=== PATIENT | female | born 1950 | race Hispanic/Latino ===

== ENCOUNTER 2017-10-31 12:04 | Emergency (ER) | payer OTHER ==
[2017-10-31] MEDS ORDERED: NACL 0.9% 1000 ML 1,000 ML IV ONE ×2 (12:39→15:22)
--- NOTE | 2017-10-31 12:42 | Emergency Department Report ---
ED Altered Mental Status HPI - General Chief Complaint: Altered Mental Status Stated Complaint: ETOH/UNRESPONSIVE Time Seen by Provider: 10/31/17 12:37 Source: EMS Mode of arrival: Stretcher Limitations: Altered Mental Status - History of Present Illness Initial Comments: 66-year-old female brought by EMS for drinking binge all nught; today she was poorly arousable family called 911 she does arrive verbal protecting airway normal pulse ox but confused strength is grossly nonfocal to upper extremity + gag neck was supple she was afebrile. She is here for evaluation of altered mental status after drinking binge. MD Complaint: altered mental status -: unknown - Related Data Home Medications Medication Instructions Recorded Confirmed Last Taken Amitriptyline [Elavil] 50 mg PO HS 10/31/17 10/31/17 10/29/17 Naproxen Sodium [Aleve] 220 mg PO Q6H PRN 10/31/17 10/31/17 Unknown Paroxetine HCl [PARoxetine] 40 mg PO QDAY 10/31/17 10/31/17 10/29/17 traZODone [Desyrel] 50 mg PO QHS 10/31/17 10/31/17 10/29/17 Allergies Allergy/AdvReac Type Severity Reaction Status Date / Time Penicillins Allergy Unknown Verified 10/31/17 12:45 ED Review of Systems ROS: Stated complaint: ETOH/UNRESPONSIVE Other details as noted in HPI Comment: Unobtainable due to pts medical conditions Constitutional: other (no trauma per EMS and family normally does not get up and walk she does get around the house in a chair) ED Past Medical Hx - Past Medical History Additional medical history: unknown - Surgical History Additional Surgical History: unknown - Social History Smoking Status: Unknown if ever smoked - Medications Home Medications: Home Medications Medication Instructions Recorded Confirmed Last Taken Type Amitriptyline [Elavil] 50 mg PO HS 10/31/17 10/31/17 10/29/17 History Naproxen Sodium [Aleve] 220 mg PO Q6H PRN 10/31/17 10/31/17 Unknown History Paroxetine HCl [PARoxetine] 40 mg PO QDAY 10/31/17 10/31/17 10/29/17 History traZODone [Desyrel] 50 mg PO QHS 10/31/17 10/31/17 10/29/17 History ED Physical Exam - General Limitations: Altered Mental Status General appearance: obtunded, other (arousable protecting airway positive gag but altered mental status and intoxication) - Head Head exam: Present: atraumatic, normocephalic - Eye Eye exam: Present: normal appearance, PERRL - Cardiovascular Cardiovascular Exam: Present: regular rate, normal rhythm. Absent: irregular rhythm, systolic murmur, diastolic murmur, rubs, gallop - GI/Abdominal GI/Abdominal exam: Present: soft. Absent: tenderness, guarding, rebound, mass, bruit, pulsatile mass - Extremities Exam Extremities exam: Absent: tenderness, joint swelling, calf tenderness - Back Exam Back exam: Present: normal inspection. Absent: CVA tenderness (R) - Neurological Exam Neurological exam: Present: CN II-XII intact, other (previous parietal lobe CVA) ED Course Vital Signs 10/31/17 10/31/17 10/31/17 12:42 14:08 15:47 Temperature 97.5 F L Pulse Rate 66 65 Respiratory 18 20 14 Rate Blood Pressure 93/45 106/48 [Right] O2 Sat by Pulse 95 95 100 Oximetry 10/31/17 16:42 Temperature Pulse Rate 78 Respiratory 18 Rate Blood Pressure 104/56 [Right] O2 Sat by Pulse 97 Oximetry - Reevaluation(s) Reevaluation #1: 10/31/17 17:[address] were ordered family did eventually present to the ED. He states the patient never gets out of bed but they had given her a bottle of alcohol for Ramya is a history of drinking problems she barely drank all bilateral they denied any trauma she was verbal or megaly with eyes open and some following of commands CT head shows old parietal infarct but nothing acute laboratory studies essentially showed alcohol intoxication she was observed in ED until she was improved she was somewhat combative with blood draw and CT she was therefore given some sedation because of danger to self and others have a labile blood pressure in the ED which was corrected with fluids and some bicarbonate EKG was normal sinus rhythm without acute ST-T changes - Lab Data Result diagrams: 10/31/17 Unknown 10/31/17 Unknown Lab Results 10/31/17 10/31/17 10/31/17 Range/Units 13:50 13:50 14:36 WBC (4.5-11.0) K/mm3 RBC (3.65-5.03) M/mm3 Hgb (10.1-14.3) gm/dl Hct (30.3-42.9) % MCV (79-97) fl MCH (28-32) pg MCHC (30-34) % RDW (13.2-15.2) % Plt Count (140-440) K/mm3 Lymph % (Auto) (13.4-35.0) % Bertie % (Auto) (0.0-7.3) % Eos % (Auto) (0.0-4.3) % Baso % (Auto) (0.0-1.8) % Lymph # (1.2-5.4) K/mm3 Bertie # (0.0-0.8) K/mm3 Eos # (0.0-0.4) K/mm3 Baso # (0.0-0.1) K/mm3 Seg Neutrophils % (40.0-70.0) % Seg Neutrophils # (1.8-7.7) K/mm3 Sodium (137-145) mmol/L Potassium (3.6-5.0) mmol/L Chloride (98-107) mmol/L Carbon Dioxide (22-30) mmol/L Anion Gap mmol/L BUN (7-17) mg/dL Creatinine (0.7-1.2) mg/dL Estimated GFR ml/min BUN/Creatinine Ratio % Glucose (65-100) mg/dL Lactic Acid 2.80 H* (0.7-2.0) mmol/L Calcium (8.4-10.2) mg/dL Magnesium (1.7-2.3) mg/dL Total Bilirubin (0.1-1.2) mg/dL AST (5-40) units/L ALT (7-56) units/L Alkaline Phosphatase (35-129) units/L Total Protein (6.3-8.2) g/dL Albumin (3.9-5) g/dL Albumin/Globulin Ratio % TSH (0.270-4.200) mlU/mL Urine Color Yellow (Yellow) Urine Turbidity Clear (Clear) Urine pH 5.0 (5.0-7.0) Ur Specific [place] 1.017 (1.003-1.030) Urine Protein <15 mg/dl (Negative) mg/dL Urine Glucose (UA) Neg (Negative) mg/dL Urine Ketones Neg (Negative) mg/dL Urine Blood Neg (Negative) Urine Nitrite Pos (Negative) Urine Bilirubin Neg (Negative) Urine Urobilinogen 4.0 (<2.0) mg/dL Ur Leukocyte Esterase Neg (Negative) Urine WBC (Auto) 3.0 (0.0-6.0) /HPF Urine RBC (Auto) 5.0 (0.0-6.0) /HPF Urine Bacteria (Auto) 1+ (Negative) /HPF Urine Mucus Few /HPF Salicylates (2.8-20.0) mg/dL Urine Opiates Screen Presumptive negative Urine Methadone Screen Presumptive negative Acetaminophen (10.0-30.0) ug/mL Ur Barbiturates Screen Presumptive negative Ur Phencyclidine Scrn Presumptive negative Ur Amphetamines Screen Presumptive positive U Benzodiazepines Scrn Presumptive negative Urine Cocaine Screen Presumptive negative U Marijuana (THC) Screen Presumptive negative Drugs of Abuse Note Disclamer Plasma/Serum Alcohol (0-0.07) gm% 10/31/17 10/31/17 10/31/17 Range/Units Unknown Unknown Unknown WBC 5.1 (4.5-11.0) K/mm3 RBC 4.25 (3.65-5.03) M/mm3 Hgb 14.0 (10.1-14.3) gm/dl Hct 41.5 (30.3-42.9) % MCV 98 H (79-97) fl MCH 33 H (28-32) pg MCHC 34 (30-34) % RDW 14.0 (13.2-15.2) % Plt Count 147 (140-440) K/mm3 Lymph % (Auto) 25.0 (13.4-35.0) % Bertie % (Auto) 2.8 (0.0-7.3) % Eos % (Auto) 1.7 (0.0-4.3) % Baso % (Auto) 0.6 (0.0-1.8) % Lymph # 1.3 (1.2-5.4) K/mm3 Bertie # 0.1 (0.0-0.8) K/mm3 Eos # 0.1 (0.0-0.4) K/mm3 Baso # 0.0 (0.0-0.1) K/mm3 Seg Neutrophils % 69.9 (40.0-70.0) % Seg Neutrophils # 3.5 (1.8-7.7) K/mm3 Sodium 143 (137-145) mmol/L Potassium 4.9 (3.6-5.0) mmol/L Chloride 105.3 (98-107) mmol/L Carbon Dioxide 23 (22-30) mmol/L Anion Gap 20 mmol/L BUN 8 (7-17) mg/dL Creatinine 0.7 (0.7-1.2) mg/dL Estimated GFR > 60 ml/min BUN/Creatinine Ratio 11 % Glucose 112 H (65-100) mg/dL Lactic Acid 2.50 H* (0.7-2.0) mmol/L Calcium 8.0 L (8.4-10.2) mg/dL Magnesium 2.00 (1.7-2.3) mg/dL Total Bilirubin 0.30 (0.1-1.2) mg/dL AST 17 (5-40) units/L ALT 8 (7-56) units/L Alkaline Phosphatase 68 (35-129) units/L Total Protein 6.2 L (6.3-8.2) g/dL Albumin 4.0 (3.9-5) g/dL Albumin/Globulin Ratio 1.8 % TSH (0.270-4.200) mlU/mL Urine Color (Yellow) Urine Turbidity (Clear) Urine pH (5.0-7.0) Ur Specific [place] (1.003-1.030) Urine Protein (Negative) mg/dL Urine Glucose (UA) (Negative) mg/dL Urine Ketones (Negative) mg/dL Urine Blood (Negative) Urine Nitrite (Negative) Urine Bilirubin (Negative) Urine Urobilinogen (<2.0) mg/dL Ur Leukocyte Esterase (Negative) Urine WBC (Auto) (0.0-6.0) /HPF Urine RBC (Auto) (0.0-6.0) /HPF Urine Bacteria (Auto) (Negative) /HPF Urine Mucus /HPF Salicylates (2.8-20.0) mg/dL Urine Opiates Screen Urine Methadone Screen Acetaminophen (10.0-30.0) ug/mL Ur Barbiturates Screen Ur Phencyclidine Scrn Ur Amphetamines Screen U Benzodiazepines Scrn Urine Cocaine Screen U Marijuana (THC) Screen Drugs of Abuse Note Plasma/Serum Alcohol (0-0.07) gm% 12/26/17 12/26/17 12/26/17 Range/Units Unknown Unknown Unknown WBC (4.5-11.0) K/mm3 RBC (3.65-5.03) M/mm3 Hgb (10.1-14.3) gm/dl Hct (30.3-42.9) % MCV (79-97) fl MCH (28-32) pg MCHC (30-34) % RDW (13.2-15.2) % Plt Count (140-440) K/mm3 Lymph % (Auto) (13.4-35.0) % Bertie % (Auto) (0.0-7.3) % Eos % (Auto) (0.0-4.3) % Baso % (Auto) (0.0-1.8) % Lymph # (1.2-5.4) K/mm3 Bertie # (0.0-0.8) K/mm3 Eos # (0.0-0.4) K/mm3 Baso # (0.0-0.1) K/mm3 Seg Neutrophils % (40.0-70.0) % Seg Neutrophils # (1.8-7.7) K/mm3 Sodium (137-145) mmol/L Potassium (3.6-5.0) mmol/L Chloride (98-107) mmol/L Carbon Dioxide (22-30) mmol/L Anion Gap mmol/L BUN (7-17) mg/dL Creatinine (0.7-1.2) mg/dL Estimated GFR ml/min BUN/Creatinine Ratio % Glucose (65-100) mg/dL Lactic Acid (0.7-2.0) mmol/L Calcium (8.4-10.2) mg/dL Magnesium (1.7-2.3) mg/dL Total Bilirubin (0.1-1.2) mg/dL AST (5-40) units/L ALT (7-56) units/L Alkaline Phosphatase (35-129) units/L Total Protein (6.3-8.2) g/dL Albumin (3.9-5) g/dL Albumin/Globulin Ratio % TSH 1.260 (0.270-4.200) mlU/mL Urine Color (Yellow) Urine Turbidity (Clear) Urine pH (5.0-7.0) Ur Specific [place] (1.003-1.030) Urine Protein (Negative) mg/dL Urine Glucose (UA) (Negative) mg/dL Urine Ketones (Negative) mg/dL Urine Blood (Negative) Urine Nitrite (Negative) Urine Bilirubin (Negative) Urine Urobilinogen (<2.0) mg/dL Ur Leukocyte Esterase (Negative) Urine WBC (Auto) (0.0-6.0) /HPF Urine RBC (Auto) (0.0-6.0) /HPF Urine Bacteria (Auto) (Negative) /HPF Urine Mucus /HPF Salicylates < 0.3 L (2.8-20.0) mg/dL Urine Opiates Screen Urine Methadone Screen Acetaminophen < 15.0 (10.0-30.0) ug/mL Ur Barbiturates Screen Ur Phencyclidine Scrn Ur Amphetamines Screen U Benzodiazepines Scrn Urine Cocaine Screen U Marijuana (THC) Screen Drugs of Abuse Note Plasma/Serum Alcohol (0-0.07) gm% // Range/Units Unknown WBC (4.5-11.0) K/mm3 RBC (3.65-5.03) M/mm3 Hgb (10.1-14.3) gm/dl Hct (30.3-42.9) % MCV (79-97) fl MCH (28-32) pg MCHC (30-34) % RDW (13.2-15.2) % Plt Count (140-440) K/mm3 Lymph % (Auto) (13.4-35.0) % Bertie % (Auto) (0.0-7.3) % Eos % (Auto) (0.0-4.3) % Baso % (Auto) (0.0-1.8) % Lymph # (1.2-5.4) K/mm3 Bertie # (0.0-0.8) K/mm3 Eos # (0.0-0.4) K/mm3 Baso # (0.0-0.1) K/mm3 Seg Neutrophils % (40.0-70.0) % Seg Neutrophils # (1.8-7.7) K/mm3 Sodium (137-145) mmol/L Potassium (3.6-5.0) mmol/L Chloride (98-107) mmol/L Carbon Dioxide (22-30) mmol/L Anion Gap mmol/L BUN (7-17) mg/dL Creatinine (0.7-1.2) mg/dL Estimated GFR ml/min BUN/Creatinine Ratio % Glucose (65-100) mg/dL Lactic Acid (0.7-2.0) mmol/L Calcium (8.4-10.2) mg/dL Magnesium (1.7-2.3) mg/dL Total Bilirubin (0.1-1.2) mg/dL AST (5-40) units/L ALT (7-56) units/L Alkaline Phosphatase (35-129) units/L Total Protein (6.3-8.2) g/dL Albumin (3.9-5) g/dL Albumin/Globulin Ratio % TSH (0.270-4.200) mlU/mL Urine Color (Yellow) Urine Turbidity (Clear) Urine pH (5.0-7.0) Ur Specific [place] (1.003-1.030) Urine Protein (Negative) mg/dL Urine Glucose (UA) (Negative) mg/dL Urine Ketones (Negative) mg/dL Urine Blood (Negative) Urine Nitrite (Negative) Urine Bilirubin (Negative) Urine Urobilinogen (<2.0) mg/dL Ur Leukocyte Esterase (Negative) Urine WBC (Auto) (0.0-6.0) /HPF Urine RBC (Auto) (0.0-6.0) /HPF Urine Bacteria (Auto) (Negative) /HPF Urine Mucus /HPF Salicylates (2.8-20.0) mg/dL Urine Opiates Screen Urine Methadone Screen Acetaminophen (10.0-30.0) ug/mL Ur Barbiturates Screen Ur Phencyclidine Scrn Ur Amphetamines Screen U Benzodiazepines Scrn Urine Cocaine Screen U Marijuana (THC) Screen Drugs of Abuse Note Plasma/Serum Alcohol 0.39 H (0-0.07) gm% - EKG Data -: EKG Interpreted by Me EKG shows normal: sinus rhythm When compared to previous EKG there are: previous EKG unavailable - Radiology Data Radiology results: report reviewed - Medical Decision Making After fluids patient's blood pressure is now improved patient is now more awake is stable for outpatient follow-up in the care of family she is still intoxicated but is arousable with good gag reflex to be observed all night by the family family is willing to take her home and observe her for this she is discharged to [facility] in stable condition, now w/o c/o and oriented x 3 and family will selene eher home Critical care attestation.: If time is entered above; I have spent that time in minutes in the direct care of this critically ill patient, excluding procedure time. ED Disposition Clinical Impression: Alcohol intoxication Disposition: DC-01 TO HOME OR SELFCARE Is pt being admited?: No Condition: Stable Instructions: Alcohol Intoxication (ED) Additional Instructions: F/u regular doctor or the doctor listed return if new alarming symptoms or call 911, avoid alcohol. Referrals: HARRISON ROLLE MD [Primary Care Provider] - 3-5 Days Time of Disposition: 17:57
[2017-10-31] MEDS ORDERED: ATIVAN IV ONE (12:58)
[2017-10-31] MEDS ORDERED: ATIVAN ONE (13:00)
[2017-10-31] MEDS ORDERED: HALDOL IM ONE (13:05)
[2017-10-31 13:43] LABS: Basophils % (Auto) 0.6 % (0.0-1.8); Eosinophils % (Auto) 1.7 % (0.0-4.3); Hematocrit 41.5 % (30.3-42.9); Mean Corpuscular HGB Conc 34 % (30-34); Mean Corpuscular Hemoglobin 33 pg (28-32); Mean Corpuscular Volume 98 fl (79-97); Platelet Count 147 K/mm3 (140-440); Red Blood Count 4.25 M/mm3 (3.65-5.03); White Blood Count 5.1 K/mm3 (4.5-11.0)
[2017-10-31 13:46] LABS: Alanine Aminotransferase 8 units/L (7-56); Albumin/Globulin Ratio 1.8 %; Alkaline Phosphatase 68 units/L (35-129); Anion Gap 20 mmol/L; BUN/Creatinine Ratio 11; Blood Urea Nitrogen 8 mg/dL (7-17); Carbon Dioxide 23 mmol/L (22-30); Chloride 105.3 mmol/L (98-107); Glucose 112 mg/dL (65-100); Potassium 4.9 mmol/L (3.6-5.0); Sodium 143 mmol/L (137-145); Total Protein 6.2 g/dL (6.3-8.2)
[2017-10-31 14:26] LABS: Bacteria,Urine 1+ /HPF (Negative); Bilirubin,Urine NEG (Negative); Blood,Urine NEG (Negative); Ketones,Urine NEG (Negative); Leukocyte Esterase,Urine NEG (Negative); Mucus,Urine FEW /HPF; Nitrite,Urine POS (Negative); Protein,Urine <15 mg/dL mg/dL (Negative)
[2017-10-31 14:27] LABS: Urine Drugs of Abuse Note Disclamer
--- NOTE | 2017-10-31 15:12 | Cat Scan Report ---
FINAL REPORT PROCEDURE: CT HEAD/BRAIN WO CON TECHNIQUE: Computerized tomography of the head was performed without contrast material. HISTORY: ams COMPARISON: None FINDINGS: Mild mucoperiosteal thickening of the right sphenoidal sinus and partially included of the maxillary sinuses is seen. There is septal thickening without chris ethmoidal sinusitis. The skull base and calvarium are intact. There is no intra or extra-axial hemorrhage. There is no CT evident acute infarction. 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 There is no mass effect. There is no gross mass lesion or leptomeningeal abnormality given limitation of lack of IV contrast. IMPRESSION: Old right parietal lobe infarct. No CT evident acute intracranial process. Partially imaged mild chronic sinusitis
[2017-10-31] MEDS ORDERED: SODIUM BICARBONATE IV ONE ×3 (15:30→16:00)
--- NOTE | 2017-10-31 16:27 | XRay Report ---
Portable chest: AMS There is mild hazy increased density at the right lateral lung base. There is mild elevation of the right hemidiaphragm. With this exception the lungs are clear. The heart is normal in size and there is no vascular congestion. No prior study for comparison. Impression: Questionable mild basilar atelectasis. Doubt infiltrate.
[2017-10-31 16:43] VITALS: BP 104/56
== END 2017-10-31 18:34 | disposition home or self-care (01) ==
LOC: ED 12:04
DX: F10.129 Alcohol abuse with intoxication, unspecified (principal); Z88.0 Allergy status to penicillin
CPT/HCPCS: 36415; 70450; 71010; 80053; 80307; 81001; 82140; 83735; 84443; 85025; 93005; 93010; 96361; 96372; 96374; 96375; 99285; G0480; J1630; J2060; J7030; 80320